=== PATIENT | female | born 1935 | race Caucasian/White ===

== ENCOUNTER → 2019-09-02 | Outpatient (CLI) | payer MEDICARE, OTHER | LOC: RAD 10:17 | DX: R10.11 Right upper quadrant pain (principal) ==

== ENCOUNTER → 2020-12-10 | Outpatient (CLI) | payer MEDICARE, OTHER | LOC: LAB 12:27 | PROVIDERS: Psychiatry & Neurology Neurology | DX: G31.9 Degenerative disease of nervous system, unspecified (principal); R90.82 White matter disease, unspecified | CPT/HCPCS: Q9967 ==

== ENCOUNTER 2021-01-31 08:38 | Emergency (ER) | payer MEDICARE, OTHER ==
[2021-01-31] MEDS ORDERED: AMIODARONE200 MG PO (08:48)
[2021-01-31] MEDS ORDERED: AMLODIPINE BES2.5 MG PO (08:48)
[2021-01-31] MEDS ORDERED: ELIQUIS2.5 MG PO (08:49)
[2021-01-31] MEDS ORDERED: ANASTROZOLE1 M1 PO (08:49)
[2021-01-31] MEDS ORDERED: GABAPENTIN100 MG PO (08:49)
[2021-01-31 09:56] LABS: EOS % 0.3 % (1.0-5.0); HEMATOCRIT 44.7 % (37.0-47.0); HEMOGLOBIN 14.2 g/dL (12.5-16.0); MEAN CELL VOLUME 96 fl (78-100); MEAN CORPUSCULAR HEMOGLOBIN 31 pg (27-31); MEAN CORPUSCULAR HGB CONC 32 g/dL (33-37); MEAN PLATELET VOLUME 8.8 fl (7.4-10.4); MONO # 1.4 (0.20-0.80); NEU # 7.6 (1.40-6.50); PLATELET COUNT 240 K/mm3 (130-400); RED BLOOD COUNT 4.65 M/mm3 (4.10-5.30); RED CELL DISTRIBUTION WIDTH 13.5 % (11.5-14.5); WHITE BLOOD COUNT 10.2 K/mm3 (4.8-10.8)
[2021-01-31 10:06] LABS: POTASSIUM 3.4 mmol/L (3.5-5.1)
[2021-01-31 10:07] LABS: CALCIUM 9.6 mg/dL (8.3-10.5)
[2021-01-31 10:09] LABS: TOTAL PROTEIN 7.3 g/dL (6.2-8.1)
[2021-01-31 10:10] LABS: TOTAL BILIRUBIN 0.9 mg/dL (0.2-1.2)
[2021-01-31 10:25] LABS: PH-URINE 6.5 (5.0 - 8.0); URINE APPEARANCE CLOUDY; URINE BILIRUBIN NEGATIVE (NEGATIVE); URINE BLOOD TRACE (NEGATIVE); URINE COLOR YELLOW; URINE GLUCOSE NEGATIVE (NEGATIVE); URINE KETONE NEGATIVE (NEGATIVE); URINE LEUKOCYTE ESTERASE 1+ (NEGATIVE); URINE NITRATE POSITIVE (NEGATIVE); URINE PROTEIN(semi-quant) NEGATIVE (NEGATIVE); URINE UROBILINOGEN NORMAL (NORMAL); URINE WBC >50 /hpf (0-3)
[2021-01-31] MEDS ORDERED: MACROBID 100 M100 MG PO (14:10)
[2021-01-31] MEDS ORDERED: NORCO 325 MG-51 TA1 PO (14:46)
[2021-01-31 15:29] VITALS: BP 163/83
== END 2021-01-31 14:58 | disposition home or self-care (01) ==
LOC: ED 08:38
PROVIDERS: Family Medicine
DX: S42.011A Anterior displaced fracture of sternal end of right clavicle, initial encounter for closed fracture (principal); I95.1 Orthostatic hypotension; E86.9 Volume depletion, unspecified; N39.0 Urinary tract infection, site not specified; I48.91 Unspecified atrial fibrillation; Z79.01 Long term (current) use of anticoagulants; Z95.0 Presence of cardiac pacemaker; W19.XXXA Unspecified fall, initial encounter
CPT/HCPCS: J0696; J7030

== ENCOUNTER 2021-02-02 10:07 | Emergency (ER) | payer MEDICARE, OTHER ==
[~2021-02-02 10:07] MED LIST: AMIODARONE200 MG PO; AMLODIPINE BES2.5 MG PO; ANASTROZOLE1 M1 PO; ELIQUIS2.5 MG PO; GABAPENTIN100 MG PO; MACROBID 100 M100 MG PO; NORCO 325 MG-51 TA1 PO
[2021-02-02 11:19] LABS: HEMATOCRIT 40.7 % (37.0-47.0); HEMOGLOBIN 12.7 g/dL (12.5-16.0); MEAN CELL VOLUME 98 fl (78-100); MEAN CORPUSCULAR HEMOGLOBIN 31 pg (27-31); MEAN CORPUSCULAR HGB CONC 31 g/dL (33-37); MEAN PLATELET VOLUME 8.7 fl (7.4-10.4); PLATELET COUNT 216 K/mm3 (130-400); RED BLOOD COUNT 4.17 M/mm3 (4.10-5.30); RED CELL DISTRIBUTION WIDTH 13.5 % (11.5-14.5); WHITE BLOOD COUNT 15.7 K/mm3 (4.8-10.8)
[2021-02-02 11:34] LABS: ALBUMIN 3.3 g/dL (3.4-4.8); POTASSIUM 3.7 mmol/L (3.5-5.1)
[2021-02-02 11:35] LABS: CALCIUM 8.8 mg/dL (8.3-10.5)
[2021-02-02 11:37] LABS: LYMPHOCYTE 3 % (20-51); MONOCYTE 9 % (3-10); NEUTROPHILS 88 % (42-75); TOTAL PROTEIN 6.2 g/dL (6.2-8.1)
[2021-02-02 11:38] LABS: TOTAL BILIRUBIN 1.2 mg/dL (0.2-1.2)
[2021-02-02 11:57] LABS: URINE APPEARANCE CLEAR; URINE BILIRUBIN NEGATIVE (NEGATIVE); URINE BLOOD 50 ery/uL (NEGATIVE); URINE COLOR YELLOW; URINE GLUCOSE NEGATIVE (NEGATIVE); URINE KETONE 2+ (NEGATIVE); URINE LEUKOCYTE ESTERASE NEGATIVE (NEGATIVE); URINE NITRATE NEGATIVE (NEGATIVE); URINE PROTEIN(semi-quant) NEGATIVE (NEGATIVE); URINE UROBILINOGEN NORMAL (NORMAL)
[2021-02-02 15:00] VITALS: BP 122/78
== END 2021-02-02 15:04 | disposition other institution (70) ==
LOC: ED 10:07
PROVIDERS: Nurse Practitioner Family
DX: S42.011D Anterior displaced fracture of sternal end of right clavicle, subsequent encounter for fracture with routine healing (principal); D72.829 Elevated white blood cell count, unspecified; N39.0 Urinary tract infection, site not specified; I95.1 Orthostatic hypotension; E86.9 Volume depletion, unspecified; I48.91 Unspecified atrial fibrillation; I10 Essential (primary) hypertension; Z79.01 Long term (current) use of anticoagulants; Z20.822 Contact with and (suspected) exposure to COVID-19; W19.XXXD Unspecified fall, subsequent encounter
CPT/HCPCS: Q9967

== ENCOUNTER 2021-02-02 14:33 | Inpatient (IN) | payer MEDICARE, OTHER ==
[2021-02-02 15:24] VITALS: BP 116/70; BP 118/71; BP 129/74
[2021-02-02 17:29] VITALS: BP 122/77
[2021-02-02 22:13] VITALS: BP 118/71
[2021-02-03] VITALS (8 sets, daily range): BP systolic 118–155; BP diastolic 73–90
[2021-02-03 05:33] LABS: HEMATOCRIT 35.6 % (37.0-47.0); HEMOGLOBIN 11.3 g/dL (12.5-16.0); MEAN CELL VOLUME 98 fl (78-100); MEAN CORPUSCULAR HEMOGLOBIN 31 pg (27-31); MEAN CORPUSCULAR HGB CONC 32 g/dL (33-37); PLATELET COUNT 218 K/mm3 (130-400); RED BLOOD COUNT 3.63 M/mm3 (4.10-5.30); RED CELL DISTRIBUTION WIDTH 13.7 % (11.5-14.5); WHITE BLOOD COUNT 9.2 K/mm3 (4.8-10.8)
[2021-02-03 05:51] LABS: POTASSIUM 3.1 mmol/L (3.5-5.1)
[2021-02-03 06:17] LABS: BAND 1 % (0-10); LYMPHOCYTE 9 % (20-51); MONOCYTE 8 % (3-10); NEUTROPHILS 76 % (42-75)
[2021-02-04] VITALS (7 sets, daily range): BP systolic 137–164; BP diastolic 77–97
[2021-02-04 07:08] LABS: HEMATOCRIT 38.2 % (37.0-47.0); HEMOGLOBIN 11.9 g/dL (12.5-16.0); MEAN CELL VOLUME 97 fl (78-100); MEAN CORPUSCULAR HEMOGLOBIN 30 pg (27-31); MEAN CORPUSCULAR HGB CONC 31 g/dL (33-37); PLATELET COUNT 255 K/mm3 (130-400); RED BLOOD COUNT 3.93 M/mm3 (4.10-5.30); RED CELL DISTRIBUTION WIDTH 13.5 % (11.5-14.5); WHITE BLOOD COUNT 6.1 K/mm3 (4.8-10.8)
[2021-02-04 07:22] LABS: POTASSIUM 3.3 mmol/L (3.5-5.1)
[2021-02-04 07:23] LABS: CALCIUM 8.4 mg/dL (8.3-10.5)
[2021-02-04 09:02] LABS: BAND 1 % (0-10); LYMPHOCYTE 15 % (20-51); MONOCYTE 8 % (3-10); NEUTROPHILS 70 % (42-75)
[2021-02-04] MEDS ORDERED: POTASSIUM CHLO20 ME4 PO (09:32)
[2021-02-04] MEDS ORDERED: CEFDINIR300 MG PO (09:33)
== END 2021-02-04 11:41 | disposition home or self-care (01) | DRG 690 ==
LOC: MED/SURG 14:33
PROVIDERS: Physician Assistant; ADMIT Nurse Practitioner Family
DX: N39.0 Urinary tract infection, site not specified (principal); I48.91 Unspecified atrial fibrillation; I10 Essential (primary) hypertension; E87.6 Hypokalemia; S42.001D Fracture of unspecified part of right clavicle, subsequent encounter for fracture with routine healing; M54.9 Dorsalgia, unspecified; R53.1 Weakness; B96.20 Unspecified Escherichia coli [E. coli] as the cause of diseases classified elsewhere; W19.XXXD Unspecified fall, subsequent encounter; Z79.891 Long term (current) use of opiate analgesic; Z79.01 Long term (current) use of anticoagulants; Z95.0 Presence of cardiac pacemaker; Z96.641 Presence of right artificial hip joint; Z85.3 Personal history of malignant neoplasm of breast
CPT/HCPCS: J0696; J7030

== ENCOUNTER → 2021-02-16 | Outpatient (CLI) | payer MEDICARE, OTHER ==
[2021-02-04 09:36] VITALS: BP 137/77
[~2021-02-16] MED LIST changes: +ACETAMINOPHEN-H1 TA2 PO; +CEFDINIR300 MG PO; +LEVOTHYROXIN0.025 MG PO; +LIDOCAINE1 EACH TP; +MIRALAX119 GM PO; +ONDANSETRON ODT8 MG PO; +OXYCODONE HYDRO1 TA1 PO; +POTASSIUM CHLO20 ME4 PO; +SEPTRA DS 8001 TAB PO; +SYNTHROID25 MCG PO
[2021-02-16 10:55] LABS: POTASSIUM 4.2 mmol/L (3.5-5.1)
[2021-02-16 10:56] LABS: CALCIUM 9.9 mg/dL (8.3-10.5)
[2021-02-16 11:27] LABS: PH-URINE 5.5 (5.0 - 8.0); URINE APPEARANCE CLEAR; URINE BILIRUBIN NEGATIVE (NEGATIVE); URINE BLOOD TRACE (NEGATIVE); URINE COLOR YELLOW; URINE GLUCOSE NEGATIVE (NEGATIVE); URINE KETONE NEGATIVE (NEGATIVE); URINE LEUKOCYTE ESTERASE NEGATIVE (NEGATIVE); URINE NITRATE NEGATIVE (NEGATIVE); URINE PROTEIN(semi-quant) NEGATIVE (NEGATIVE); URINE UROBILINOGEN NORMAL (NORMAL)
== END ==
LOC: LAB 10:14 → RAD 10:14
PROVIDERS: Physician Assistant
DX: S42.001A Fracture of unspecified part of right clavicle, initial encounter for closed fracture (principal); Z95.0 Presence of cardiac pacemaker

== ENCOUNTER 2021-03-19 08:02 | Emergency (ER) | payer MEDICARE, OTHER ==
[~2021-03-19 08:02] MED LIST changes: -ACETAMINOPHEN-H1 TA2 PO; -LEVOTHYROXIN0.025 MG PO; -LIDOCAINE1 EACH TP; -MIRALAX119 GM PO; -ONDANSETRON ODT8 MG PO; -OXYCODONE HYDRO1 TA1 PO; -SEPTRA DS 8001 TAB PO; -SYNTHROID25 MCG PO
[2021-03-19 08:52] LABS: HEMATOCRIT 41.2 % (37.0-47.0); HEMOGLOBIN 12.7 g/dL (12.5-16.0); MEAN CELL VOLUME 98 fl (78-100); MEAN CORPUSCULAR HEMOGLOBIN 30 pg (27-31); MEAN CORPUSCULAR HGB CONC 31 g/dL (33-37); MEAN PLATELET VOLUME 9.4 fl (7.4-10.4); PLATELET COUNT 247 K/mm3 (130-400); RED BLOOD COUNT 4.21 M/mm3 (4.10-5.30); RED CELL DISTRIBUTION WIDTH 14.1 % (11.5-14.5); WHITE BLOOD COUNT 9.3 K/mm3 (4.8-10.8)
[2021-03-19 09:01] LABS: POTASSIUM 3.4 mmol/L (3.5-5.1)
[2021-03-19 09:02] LABS: ALBUMIN 3.7 g/dL (3.4-4.8)
[2021-03-19 09:03] LABS: CALCIUM 9.2 mg/dL (8.3-10.5)
[2021-03-19 09:05] LABS: TOTAL PROTEIN 6.7 g/dL (6.2-8.1)
[2021-03-19 09:06] LABS: TOTAL BILIRUBIN 1.1 mg/dL (0.2-1.2)
[2021-03-19 09:08] LABS: LYMPHOCYTE 6 % (20-51); MONOCYTE 11 % (3-10); NEUTROPHILS 83 % (42-75)
[2021-03-19 09:45] LABS: URINE COLOR YELLOW
[2021-03-19 09:46] LABS: URINE APPEARANCE CLEAR; URINE BILIRUBIN NEGATIVE (NEGATIVE); URINE BLOOD 250 ery/uL (NEGATIVE); URINE GLUCOSE NEGATIVE (NEGATIVE); URINE KETONE NEGATIVE (NEGATIVE); URINE LEUKOCYTE ESTERASE TRACE (NEGATIVE); URINE MUCUS PRESENT (NOT PRESENT); URINE NITRATE NEGATIVE (NEGATIVE); URINE PROTEIN(semi-quant) 1+ mg/dL (NEGATIVE); URINE UROBILINOGEN NORMAL (NORMAL)
[2021-03-19] MEDS ORDERED: MIRALAX119 GM PO (11:30)
[2021-03-19] MEDS ORDERED: SYNTHROID25 MCG PO (11:30)
[2021-03-19] MEDS ORDERED: NORCO 325 MG-51 TA1 PO (11:30)
[2021-03-19 11:42] VITALS: BP 121/74
[2021-03-20] MEDS ORDERED: LEVOTHYROXIN0.025 MG PO (16:04)
== END 2021-03-19 11:40 | disposition home or self-care (01) ==
LOC: ED 08:02
PROVIDERS: Nurse Practitioner Primary Care
DX: M48.54XA Collapsed vertebra, not elsewhere classified, thoracic region, initial encounter for fracture (principal); E03.2 Hypothyroidism due to medicaments and other exogenous substances; I48.91 Unspecified atrial fibrillation; Z95.0 Presence of cardiac pacemaker; Z79.01 Long term (current) use of anticoagulants
CPT/HCPCS: J2270; J2405; Q9967

== ENCOUNTER 2021-03-20 15:40 | Emergency (ER) | payer MEDICARE, OTHER ==
[~2021-03-20 15:40] MED LIST changes: +MIRALAX119 GM PO; +SYNTHROID25 MCG PO
[2021-03-20] MEDS ORDERED: LEVOTHYROXIN0.025 MG PO (16:04)
[2021-03-20 18:29] VITALS: BP 148/84
== END 2021-03-20 18:46 | disposition home or self-care (01) ==
LOC: ED 15:40
DX: K59.00 Constipation, unspecified (principal); E03.9 Hypothyroidism, unspecified; I48.91 Unspecified atrial fibrillation; Z85.3 Personal history of malignant neoplasm of breast; Z79.890 Hormone replacement therapy; Z79.01 Long term (current) use of anticoagulants

== ENCOUNTER 2021-03-23 10:09 | Emergency (ER) | payer MEDICARE, OTHER ==
[~2021-03-23 10:09] MED LIST changes: +LEVOTHYROXIN0.025 MG PO
[2021-03-23] MEDS ORDERED: OXYCODONE HYDRO1 TA1 PO (10:23)
[2021-03-23] MEDS ORDERED: SEPTRA DS 8001 TAB PO (10:23)
[2021-03-23] MEDS ORDERED: LIDOCAINE1 EACH TP (10:24)
[2021-03-23] MEDS ORDERED: ONDANSETRON ODT8 MG PO (12:24)
[2021-03-23 12:45] VITALS: BP 126/84
== END 2021-03-23 12:45 | disposition home or self-care (01) ==
LOC: ED 10:09
DX: G89.29 Other chronic pain (principal); M54.9 Dorsalgia, unspecified; R13.10 Dysphagia, unspecified; R10.84 Generalized abdominal pain; R11.2 Nausea with vomiting, unspecified; I48.91 Unspecified atrial fibrillation; E03.9 Hypothyroidism, unspecified; Z98.890 Other specified postprocedural states; Z79.01 Long term (current) use of anticoagulants; Z79.890 Hormone replacement therapy

== ENCOUNTER 2021-03-25 08:41 | Inpatient (IN) | payer MEDICARE, OTHER ==
[~2021-03-25 08:41] MED LIST changes: +LIDOCAINE1 EACH TP; +ONDANSETRON ODT8 MG PO; +OXYCODONE HYDRO1 TA1 PO; +SEPTRA DS 8001 TAB PO
[2021-03-25 09:00] VITALS: BP 127/69
[2021-03-25 09:39] LABS: HEMOGLOBIN 12.1 g/dL (12.5-16.0); MEAN CELL VOLUME 97 fl (78-100); MEAN CORPUSCULAR HEMOGLOBIN 31 pg (27-31); MEAN CORPUSCULAR HGB CONC 32 g/dL (33-37); PLATELET COUNT 316 K/mm3 (130-400); WHITE BLOOD COUNT 11.5 K/mm3 (4.8-10.8)
[2021-03-25 09:54] LABS: BAND 1 % (0-10); LYMPHOCYTE 4 % (20-51); MONOCYTE 8 % (3-10); NEUTROPHILS 86 % (42-75)
[2021-03-25 09:58] LABS: ALBUMIN 3.6 g/dL (3.4-4.8)
[2021-03-25 10:01] LABS: TOTAL PROTEIN 6.7 g/dL (6.2-8.1)
[2021-03-25 10:02] LABS: TOTAL BILIRUBIN 0.4 mg/dL (0.2-1.2)
[2021-03-25 10:20] VITALS: BP 151/77
[2021-03-25] MEDS ORDERED: ACETAMINOPHEN-H1 TA2 PO (10:46)
[2021-03-25 10:54] VITALS: BP 155/76
[2021-03-25 11:36] LABS: ERYTHROCYTE SEDIMENTATION RATE 64 mm/hr (0-30)
[2021-03-25 14:18] VITALS: BP 145/92
[2021-03-25 18:15] VITALS: BP 143/89
[2021-03-25 22:37] VITALS: BP 145/77
[2021-03-26 02:09] VITALS: BP 183/98
[2021-03-26 06:09] VITALS: BP 173/91
[2021-03-26 10:01] LABS: URINE APPEARANCE CLEAR; URINE BILIRUBIN NEGATIVE (NEGATIVE); URINE BLOOD 50 ery/uL (NEGATIVE); URINE COLOR YELLOW; URINE GLUCOSE NEGATIVE (NEGATIVE); URINE KETONE 2+ (NEGATIVE); URINE LEUKOCYTE ESTERASE NEGATIVE (NEGATIVE); URINE NITRATE NEGATIVE (NEGATIVE); URINE PROTEIN(semi-quant) NEGATIVE (NEGATIVE); URINE UROBILINOGEN NORMAL (NORMAL)
[2021-03-26 10:04] VITALS: BP 133/71
[2021-03-26 14:08] VITALS: BP 172/89
[2021-03-26 16:33] LABS: HEMATOCRIT 38.9 % (37.0-47.0); HEMOGLOBIN 11.8 g/dL (12.5-16.0); MEAN CELL VOLUME 101 fl (78-100); MEAN CORPUSCULAR HEMOGLOBIN 31 pg (27-31); MEAN CORPUSCULAR HGB CONC 30 g/dL (33-37); MEAN PLATELET VOLUME 8.8 fl (7.4-10.4); PLATELET COUNT 324 K/mm3 (130-400); RED BLOOD COUNT 3.87 M/mm3 (4.10-5.30); RED CELL DISTRIBUTION WIDTH 13.6 % (11.5-14.5); WHITE BLOOD COUNT 6.6 K/mm3 (4.8-10.8)
[2021-03-26 16:43] LABS: POTASSIUM 3.5 mmol/L (3.5-5.1)
[2021-03-26 16:44] LABS: CALCIUM 8.7 mg/dL (8.3-10.5)
[2021-03-26 17:09] LABS: LYMPHOCYTE 9 % (20-51); MONOCYTE 15 % (3-10); NEUTROPHILS 75 % (42-75); TARGET CELLS 1+; TEAR DROP CELLS 2+
[2021-03-26 17:36] VITALS: BP 137/74
[2021-03-26 21:58] VITALS: BP 152/81
[2021-03-27 02:10] VITALS: BP 159/84
[2021-03-27 05:47] VITALS: BP 173/93
[2021-03-27 10:00] VITALS: BP 126/79
[2021-03-27 14:15] VITALS: BP 134/76
[2021-03-27 18:17] VITALS: BP 113/69
[2021-03-27 22:10] VITALS: BP 134/75
[2021-03-28 02:09] VITALS: BP 142/84
[2021-03-28 06:00] VITALS: BP 147/84
[2021-03-28 09:32] VITALS: BP 132/66
[2021-03-28 14:07] VITALS: BP 145/74
[2021-03-28 18:13] VITALS: BP 121/96
[2021-03-28 22:15] VITALS: BP 164/90
[2021-03-29 02:06] VITALS: BP 146/82
[2021-03-29 05:52] VITALS: BP 161/90
[2021-03-29 10:48] VITALS: BP 137/76
== END 2021-03-29 13:16 | disposition home or self-care (01) | DRG 640 ==
LOC: MED/SURG 08:41
PROVIDERS: Physician Assistant; ADMIT Nurse Practitioner Family
DX: E86.0 Dehydration (principal); E43 Unspecified severe protein-calorie malnutrition; S22.089A Unspecified fracture of T11-T12 vertebra, initial encounter for closed fracture; N39.0 Urinary tract infection, site not specified; Z68.1 Body mass index [BMI] 19.9 or less, adult; I48.91 Unspecified atrial fibrillation; E03.9 Hypothyroidism, unspecified; I10 Essential (primary) hypertension; R13.10 Dysphagia, unspecified; R62.7 Adult failure to thrive; R10.13 Epigastric pain; R11.2 Nausea with vomiting, unspecified; W19.XXXA Unspecified fall, initial encounter; Z79.01 Long term (current) use of anticoagulants; Z79.891 Long term (current) use of opiate analgesic; Z95.0 Presence of cardiac pacemaker; Z85.3 Personal history of malignant neoplasm of breast
CPT/HCPCS: C9113; J0696; J1650; J2270; J2405; J7030; J7120

== ENCOUNTER → 2021-03-31 | Outpatient (CLI) | payer MEDICARE, OTHER ==
[2021-03-29 10:48] VITALS: BP 137/76
[~2021-03-31] MED LIST changes: +ACETAMINOPHEN-H1 TA2 PO
[2021-03-31 09:10] LABS: URINE WBC 0 /hpf (0-3)
[2021-03-31 09:37] LABS: URINE APPEARANCE CLOUDY; URINE BILIRUBIN NEGATIVE (NEGATIVE); URINE BLOOD TRACE (NEGATIVE); URINE COLOR YELLOW; URINE GLUCOSE NEGATIVE (NEGATIVE); URINE KETONE NEGATIVE (NEGATIVE); URINE LEUKOCYTE ESTERASE NEGATIVE (NEGATIVE); URINE MUCUS PRESENT (NOT PRESENT); URINE NITRATE NEGATIVE (NEGATIVE); URINE PROTEIN(semi-quant) 1+ mg/dL (NEGATIVE); URINE UROBILINOGEN NORMAL (NORMAL)
[2021-03-31 09:41] LABS: HEMOGLOBIN 13.5 g/dL (12.5-16.0); MEAN CELL VOLUME 97 fl (78-100); MEAN CORPUSCULAR HEMOGLOBIN 30 pg (27-31); MEAN CORPUSCULAR HGB CONC 31 g/dL (33-37); MEAN PLATELET VOLUME 8.9 fl (7.4-10.4); PLATELET COUNT 431 K/mm3 (130-400); RED BLOOD COUNT 4.45 M/mm3 (4.10-5.30); RED CELL DISTRIBUTION WIDTH 13.5 % (11.5-14.5); WHITE BLOOD COUNT 10.2 K/mm3 (4.8-10.8)
[2021-03-31 09:43] LABS: ALBUMIN 3.7 g/dL (3.4-4.8); POTASSIUM 3.5 mmol/L (3.5-5.1)
[2021-03-31 09:45] LABS: CALCIUM 9.6 mg/dL (8.3-10.5)
[2021-03-31 09:46] LABS: TOTAL PROTEIN 6.9 g/dL (6.2-8.1)
[2021-03-31 09:48] LABS: TOTAL BILIRUBIN 0.5 mg/dL (0.2-1.2)
[2021-03-31 10:12] LABS: LYMPHOCYTE 6 % (20-51); NEUTROPHILS 79 % (42-75)
[2021-03-31 10:13] LABS: MONOCYTE 13 % (3-10)
== END ==
LOC: LAB 09:05
PROVIDERS: Family Medicine
DX: I48.20 Chronic atrial fibrillation, unspecified (principal); E03.9 Hypothyroidism, unspecified; N39.0 Urinary tract infection, site not specified

== ENCOUNTER 2021-04-27 12:54 | Outpatient (RCR) | payer MEDICARE, OTHER | END 2021-05-17 17:00 | disposition home or self-care (01) | LOC: PT 12:54 | DX: S22.009G Unspecified fracture of unspecified thoracic vertebra, subsequent encounter for fracture with delayed healing (principal) ==

== ENCOUNTER → 2021-05-12 | Outpatient (CLI) | payer MEDICARE, OTHER | LOC: LAB 10:05 | PROVIDERS: Physician Assistant | DX: R11.2 Nausea with vomiting, unspecified (principal); R10.84 Generalized abdominal pain ==

== ENCOUNTER → 2021-05-13 | Outpatient (CLI) | payer MEDICARE, OTHER | LOC: RAD 05-12 09:00 | DX: M48.04 Spinal stenosis, thoracic region (principal); R11.2 Nausea with vomiting, unspecified; Z96.641 Presence of right artificial hip joint | CPT/HCPCS: Q9967 ==

== ENCOUNTER 2021-06-24 08:55 | Outpatient (RCR) | payer MEDICARE, OTHER | END 2021-07-05 17:00 | disposition home or self-care (01) | LOC: PT 08:55 | DX: S22.081A Stable burst fracture of T11-T12 vertebra, initial encounter for closed fracture (principal) ==

== ENCOUNTER → 2021-06-24 | Outpatient (CLI) | payer MEDICARE, OTHER ==
[2021-06-25 14:24] LABS: CARCINOEMBRYONIC ANTIGEN 6.3 ng/mL (0.0-5.0)
== END ==
LOC: LAB 10:04
PROVIDERS: Family Medicine
DX: E55.9 Vitamin D deficiency, unspecified (principal)

== ENCOUNTER → 2021-07-05 | Outpatient (CLI) | payer MEDICARE, OTHER ==
[2021-07-05 10:07] LABS: PH-URINE 6.5 (5.0 - 8.0); URINE APPEARANCE CLEAR; URINE BILIRUBIN NEGATIVE (NEGATIVE); URINE BLOOD NEGATIVE (NEGATIVE); URINE COLOR YELLOW; URINE GLUCOSE NEGATIVE (NEGATIVE); URINE KETONE NEGATIVE (NEGATIVE); URINE LEUKOCYTE ESTERASE NEGATIVE (NEGATIVE); URINE MUCUS PRESENT (NOT PRESENT); URINE NITRATE NEGATIVE (NEGATIVE); URINE PROTEIN(semi-quant) TRACE mg/dL (NEGATIVE); URINE UROBILINOGEN NORMAL (NORMAL)
== END ==
LOC: LAB 06-25 13:40
PROVIDERS: Family Medicine
DX: N39.0 Urinary tract infection, site not specified (principal)

== ENCOUNTER → 2021-07-07 | Outpatient (CLI) | payer MEDICARE, OTHER | LOC: MAMMO 15:08 | DX: Z12.31 Encounter for screening mammogram for malignant neoplasm of breast (principal) ==

== ENCOUNTER → 2021-09-21 | Outpatient (CLI) | payer MEDICARE, OTHER ==
[2021-09-21 09:53] LABS: ALBUMIN 3.9 g/dL (3.4-4.8)
[2021-09-21 09:54] LABS: POTASSIUM 3.6 mmol/L (3.5-5.1)
[2021-09-21 09:55] LABS: CALCIUM 9.7 mg/dL (8.3-10.5)
[2021-09-21 09:56] LABS: TOTAL PROTEIN 6.9 g/dL (6.2-8.1)
[2021-09-21 09:58] LABS: TOTAL BILIRUBIN 0.9 mg/dL (0.2-1.2)
== END ==
LOC: LAB 09:25
PROVIDERS: Internal Medicine Medical Oncology
DX: C50.511 Malignant neoplasm of lower-outer quadrant of right female breast (principal)

== ENCOUNTER → 2021-11-18 | Outpatient (CLI) | payer MEDICARE, OTHER ==
[2021-11-18 09:49] LABS: POTASSIUM 4.4 mmol/L (3.5-5.1)
[2021-11-18 09:50] LABS: CALCIUM 9.8 mg/dL (8.3-10.5)
== END ==
LOC: LAB 09:26
PROVIDERS: Nurse Practitioner
DX: I48.0 Paroxysmal atrial fibrillation (principal); I10 Essential (primary) hypertension

== ENCOUNTER → 2021-12-20 | Outpatient (CLI) | payer MEDICARE, OTHER ==
[2021-12-20 12:49] LABS: POTASSIUM 4.5 mmol/L (3.5-5.1)
[2021-12-20 12:50] LABS: CALCIUM 9.7 mg/dL (8.3-10.5)
[2021-12-20 12:51] LABS: TOTAL PROTEIN 6.6 g/dL (6.2-8.1)
[2021-12-20 12:53] LABS: TOTAL BILIRUBIN 0.7 mg/dL (0.2-1.2)
== END ==
LOC: RAD 10:03 → LAB 10:03
PROVIDERS: Internal Medicine Medical Oncology
DX: C50.511 Malignant neoplasm of lower-outer quadrant of right female breast (principal); R22.41 Localized swelling, mass and lump, right lower limb

== ENCOUNTER → 2022-03-17 | Outpatient (CLI) | payer MEDICARE, OTHER ==
[2022-03-17 10:21] LABS: POTASSIUM 4.3 mmol/L (3.5-5.1)
[2022-03-17 10:22] LABS: CALCIUM 9.9 mg/dL (8.3-10.5)
[2022-03-17 10:23] LABS: TOTAL PROTEIN 6.9 g/dL (6.2-8.1)
[2022-03-17 10:25] LABS: TOTAL BILIRUBIN 0.9 mg/dL (0.2-1.2)
== END ==
LOC: LAB 09:58
PROVIDERS: Internal Medicine Medical Oncology
DX: C50.511 Malignant neoplasm of lower-outer quadrant of right female breast (principal)

== ENCOUNTER → 2022-05-19 | Outpatient (CLI) | payer MEDICARE, OTHER | LOC: RAD 12:00 | DX: M25.552 Pain in left hip (principal) | CPT/HCPCS: J3301; Q9967 ==

== ENCOUNTER → 2022-07-01 | Outpatient (CLI) | payer MEDICARE, OTHER ==
[2022-07-01 12:54] LABS: ALBUMIN 3.9 g/dL (3.4-4.8); POTASSIUM 3.8 mmol/L (3.5-5.1)
[2022-07-01 12:55] LABS: CALCIUM 9.9 mg/dL (8.3-10.5)
[2022-07-01 12:57] LABS: TOTAL PROTEIN 6.6 g/dL (6.2-8.1)
[2022-07-01 12:58] LABS: TOTAL BILIRUBIN 0.7 mg/dL (0.2-1.2)
== END ==
LOC: LAB 12:27
PROVIDERS: Internal Medicine Medical Oncology
DX: C50.919 Malignant neoplasm of unspecified site of unspecified female breast (principal)

== ENCOUNTER → 2022-07-25 | Outpatient (CLI) | payer MEDICARE, OTHER | LOC: MAMMO 10:23 | DX: Z12.31 Encounter for screening mammogram for malignant neoplasm of breast (principal) ==

== ENCOUNTER → 2022-11-02 | Outpatient (CLI) | payer MEDICARE, OTHER ==
[2022-11-02 11:15] LABS: CLUE CELLS PRESENT (Not Observd)
== END ==
LOC: LAB 09:46
PROVIDERS: Nurse Practitioner
DX: N89.8 Other specified noninflammatory disorders of vagina (principal); R82.998 Other abnormal findings in urine
CPT/HCPCS: Q0111

== ENCOUNTER → 2023-01-20 | Outpatient (CLI) | payer MEDICARE, OTHER ==
[2023-01-20 13:17] LABS: HEMATOCRIT 40.9 % (37.0-47.0); HEMOGLOBIN 12.3 g/dL (12.5-16.0); MEAN CELL VOLUME 106 fl (78-100); MEAN CORPUSCULAR HEMOGLOBIN 32 pg (27-31); MEAN CORPUSCULAR HGB CONC 30 g/dL (33-37); MEAN PLATELET VOLUME 8.5 fl (7.4-10.4); PLATELET COUNT 289 K/mm3 (130-400); RED BLOOD COUNT 3.87 M/mm3 (4.10-5.30); RED CELL DISTRIBUTION WIDTH 15.5 % (11.5-14.5); WHITE BLOOD COUNT 8.3 K/mm3 (4.8-10.8)
[2023-01-20 13:25] LABS: ALBUMIN 3.8 g/dL (3.4-4.8)
[2023-01-20 13:26] LABS: POTASSIUM 4.2 mmol/L (3.5-5.1)
[2023-01-20 13:27] LABS: CALCIUM 9.7 mg/dL (8.3-10.5)
[2023-01-20 13:28] LABS: TOTAL PROTEIN 6.8 g/dL (6.2-8.1)
[2023-01-20 13:30] LABS: TOTAL BILIRUBIN 0.7 mg/dL (0.2-1.2)
[2023-01-20 14:49] LABS: LYMPHOCYTE 18 % (20-51); METAMYELOCYTE 1 % (0-0); MONOCYTE 7 % (3-10); NEUTROPHILS 73 % (42-75)
== END ==
LOC: LAB 13:03
PROVIDERS: Internal Medicine Medical Oncology
DX: C50.919 Malignant neoplasm of unspecified site of unspecified female breast (principal)

== ENCOUNTER 2023-01-25 08:00 | Outpatient (RCR) | payer MEDICARE, OTHER | END 2023-02-24 | disposition home or self-care (01) | LOC: PT | DX: M16.12 Unilateral primary osteoarthritis, left hip (principal); Z96.642 Presence of left artificial hip joint ==

== ENCOUNTER → 2023-01-25 | Outpatient (CLI) | payer MEDICARE, OTHER | LOC: RAD 09:02 | DX: M97.02XA Periprosthetic fracture around internal prosthetic left hip joint, initial encounter (principal); Z96.642 Presence of left artificial hip joint ==

== ENCOUNTER 2023-06-27 07:45 | Outpatient (RCR) | payer MEDICARE, OTHER ==
[2023-06-30] MEDS ORDERED: ACETAMINOPHEN325 M1 (11:22)
[2023-06-30] MEDS ORDERED: ALENDRONATE SOD70 MG PO (11:22)
[2023-06-30] MEDS ORDERED: BISOPROLOL FUMAR5 GM PO (11:23)
[2023-06-30] MEDS ORDERED: VITAMIN D21250 MCG PO (11:23)
[2023-06-30] MEDS ORDERED: BISOPROLOL FUMA10 M1 PO (11:24)
[2023-07-01] MEDS ORDERED: ALDACTONE25 M1 PO (22:54)
== END 2023-07-27 | disposition home or self-care (01) ==
LOC: PT
DX: Z47.1 Aftercare following joint replacement surgery (principal); M97.02XD Periprosthetic fracture around internal prosthetic left hip joint, subsequent encounter; Z96.642 Presence of left artificial hip joint

== ENCOUNTER → 2024-03-26 | Outpatient (CLI) | payer MEDICARE, OTHER ==
[~2024-03-26] MED LIST changes: +ACETAMINOPHEN325 M1; +ALDACTONE25 M1 PO; +ALENDRONATE SOD70 MG PO; +BISOPROLOL FUMA10 M1 PO; +BISOPROLOL FUMAR5 GM PO; +CIPRO 250MG TA250 MG PO; +CIPRO250 M1 PO; +DEPAKOTE PO; +LEXAPRO5 MG PO; +VITAMIN D21250 MCG PO
== END ==
LOC: RAD 08:43
DX: S32.591A Other specified fracture of right pubis, initial encounter for closed fracture (principal); Z96.641 Presence of right artificial hip joint; W19.XXXA Unspecified fall, initial encounter